=== PATIENT | female | born 1945 | race Caucasian/White ===

== ENCOUNTER 2017-04-23 17:50 | Inpatient (IN) | payer MEDICARE ==
[~2017-04-23] VITALS: Ht 175.3 cm; Wt 89.8 kg
[~2017-04-23 17:50] MED LIST: ALDACTONE25 MG; ASPIR 8181 MG; CARDURA4 MG; COZAAR 50 MG TA50 M2; LIPITOR 20 MG T20 M1; LIPITOR 20 MG T20 M1 PO; NORCO 5-325 TA1 EACH PO
[2017-04-23] MEDS ORDERED: ASPIRIN81 M2 PO (18:06)
[2017-04-23] MEDS ORDERED: BIOTIN1000 MCG PO (18:12)
[2017-04-23] MEDS ORDERED: CALCIUM CITRAT250 MG PO (18:14)
[2017-04-23] MEDS ORDERED: ZYRTEC10 M5 PO (18:15)
[2017-04-23] MEDS ORDERED: VITAMIN D2000 UNIT PO (18:16)
[2017-04-23] MEDS ORDERED: CHONDROITIN SU250 MG PO (18:18)
[2017-04-23] MEDS ORDERED: LASIX 20 MG TAB20 MG PO (18:19)
[2017-04-23] MEDS ORDERED: GLUCOSAMINE HC500 MG PO (18:20)
[2017-04-23] MEDS ORDERED: LEVOXYL75 MCG PO (18:22)
[2017-04-23] MEDS ORDERED: MELATONIN5 M1 PO (18:22)
[2017-04-23] MEDS ORDERED: UNICOMPLEX M TA1 TA1 PO (18:23)
[2017-04-23] MEDS ORDERED: OMEGA-31000 M1 PO (18:24)
[2017-04-23 19:45] VITALS: BP 155/82
--- NOTE | 2017-04-23 23:37 | NUR ---
ASSUMED CARE AT 1930. PATIENT ARRIVED PER W/C ADMITTED FROM [facility] TO ROOM 326 S/P CABG X 5. STATES WAS AT [facility] AND WAS GETTING HAIR BLOWN DRY WHEN SHE BECAME OVERHEATED AND STATES THAT SHE PASSED OUT THERE. SHE DOES NOT REMEMBER ANYTHING AFTER THAT, BUT [facility] HAD [facility]. UP WITH MIN ASSIST TO RISE FROM LYING, SBA, CUEING, GAIT BELT, HEART PILLOW AND STERNAL PRECAUTIONS. STOOL RISER IN USE. ONCE IN SITTING POSITION PATIENT CAN RISE MAINTAINING STERNAL PRECAUTIONS. ABLE TO RISE OFF STOOL RISER. VOIDS PER TOILET. ABLE TO DO HYGIENE AND CLOTHING ADJUSTMENTS. STATES HAS URGENCY WHEN SHE TAKES LASIX, BUT OTHERWISE DOES NOT HAVE INCONTINENCE. NO STOOL INCONTINENCE, BUT STATES THAT SHE HAS BEEN HAVING SOFT STOOLS AFTER [facility] GAVE HER LAXATIVES FOR CONSTIPATION. GOOD BED MOBILITY AND TURNS SIDE TO SIDE WITHOUT ASSIST. 2+ BILAT ANKLE AND FOOT EDEMA. ELEVATED ON PILLOWS AND LOTION APPLIED. 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 HAS FOAM DRESSING UNDER LEFT BREAST FROM DRAIN SITES. HAS LT INNER THIGH BRUISE THAT IS FIRM. HAS LT INNER POPLITEAL INCISION, JORDON, WELL APPROXIMATED WITH GLUE AND HAS BRUISING. LT WRIST BRUISED. LT INNER FAUST HAS A BANDAID THAT IS C/D/I. O2 2L/NC. STATES THAT "NOW THAT I KNOW HOW BENEFICIAL IT IS, I DON'T MIND USING IT." DENIES PAIN. HERE EARLIER AND VERY SUPPORTIVE. REHAB ROUTINE EXPLAINED. PATIENT STATES THAT SHE HAS AN APPOINTMENT NEXT WEDNESDAY WITH CARDIOLOGY, WILL PASS THIS ON TO REHAB [facility]. HOURLY ROUNDS CONTINUE. BED ALARM ON. CALL LITE IN REACH.
[2017-04-24 04:33] LABS: HEMATOCRIT 31.7 % (37.0-47.0); HEMOGLOBIN 10.5 gm/dL (12.0-15.0); MCH 29.4 pg (26.0-34.0); MCHC 33.3 g/dL (28.0-37.0); MCV 88.2 fL (80.0-100.0); MPV 7.3 fl. (7.2-11.1); RBC 3.59 mil/uL (4.20-5.00); RDW-CV 16.5 % (10.5-14.5)
[2017-04-24 04:51] LABS: CALCIUM 8.6 mg/dL (8.5-10.1); CREATININE 0.9 mg/dL (0.6-1.3); POTASSIUM 3.7 mmol/L (3.5-5.1)
--- NOTE | 2017-04-24 05:58 | NUR ---
SLEPT MOST OF THE NIGHT. STATES THAT IT WAS THE BEST SLEEP SHE HAS GOTTEN IN A FEW DAYS. VOIDED PER TOILET. STERNAL PRECAUTIONS MAINTAINED. HOURLY ROUNDS CONTIMUE. CALL LITE IN REACH. BED ALARM ON.
[2017-04-24 08:00] VITALS: BP 144/71
--- NOTE | 2017-04-24 16:25 | NUR ---
ASSUMMED CARE OF PT AT 0730, PT ALERT AND ORIENTED, PT TRANSFERS WITH SBA, GB AND USES HEART PILLOW FOR SUPPORT, STERNAL PRECAUTIONS MAINTAINED, STERNAL INCISION HEALING, HARD AREA REMAINS ON LEFT UPPER INNER THIGH, DRESSING TO LEFT BREAST INTACT, COMPLAINS OF HEADACHE AND STERNAL PAIN THIS AM, MEDICATED PER ORDER, AMB TO BATHROOM WITH 2 LITERS OF 02, BECOMES SOA AT TIMES, O2 SATS 94-96 %. PARTICIPATED IN ALL THERAPIES, HOURLY ROUNDING COMPLETED, ASSESSMENT COMPLETE, WILL CONTINUE TO MONITOR.
[2017-04-24 20:05] VITALS: BP 126/59
--- NOTE | 2017-04-24 22:10 | NUR ---
ASSUMED CARE AT 1930. PATIENT S/P CABG X 5. RESTING IN BED AT CHANGE OF SHIFT. HERE UNTIL AROUND 2029. UP WITH ONE, GAIT BELT, MIN LIFTING ASSIST WHEN RISING FROM LYING TO SITTING POSITION IN BED, HEART PILLOW. STERNAL PRECAUTIONS MAINTAINED. ALL DRESSINGS C/D/I AND UNCHANGED FROM YESTERDAY. TAKES PILLS WHOLE WITH WATER. O2 2L/NC. OFFERED APAP AT HS, BUT STATES SHE GETS "FUZZY" WHEN SHE COMBINES APAP WITH MELATONIN AND WOULD PREFER MELATONIN THIS EVENING. STATES SHE JUST FEELS SO MUCH BETTER TODAY AFTER HER FIRST DAY IN THERAPY AND FEELS SHE WILL MAKE GOOD PROGRESS. CALL LITE IN REACH. BED ALARM ON. HOURLY ROUNDS CONTINUE.
--- NOTE | 2017-04-25 05:26 | NUR ---
SLEPT MOST OF THE NIGHT. UP TO VOID PER TOILET. UP WITH ONE, GAIT BELT, STERNAL PRECAUTIONS. NO C/O PAIN. HOURLY ROUNDS CONTINUE. BED ALARM ON. CALL LITE IN REACH.
[2017-04-25 07:00] VITALS: BP 116/71
--- NOTE | 2017-04-25 16:18 | NUR ---
ASSUMMED CARE OF PT AT 0730, PT ALERT AND ORIENTED, PT TRANSFERS WITH SBA, GB AND CARDIAC PILLOW, PT DENIES NEED FOR PAIN MEDICATION THIS SHIFT, COMPLETED BATH, GROOMING AND DRESSING WITH SUPERVISON TO MIN ASSIST, PT O2 SATS 96% ON 2 LITERS, BECOMES SOA WITH ACTIVITY, PT ENCOURAGED TO USE IS AND TO COUGH AND DEEP BREATHE, STERNAL INCISION HEALING, DRESSING CHANGED TO DRAIN SITES UNDER BREAST AREA, SMALL AMOUNT OF SEROUS SNAGUINOUS DRAINAGE NOTED, TAKING FOOD AND FLUIDS WELL, DININGROOM FOR LUNCH, AMBULATES TO TOILET TO VOID, BM THIS SHIFT, ROXI STERNAL PRECAUTIONS, ASSESSMENT COMPLETE, HOURLY ROUNDING COMPLETED, WILL CONTINUE TO MONITER.
[2017-04-25 19:30] VITALS: BP 99/49
--- NOTE | 2017-04-25 22:52 | NUR ---
ASSUMED CARE AT 1930. PATIENT S/P CABG X 5. RESTING IN W/C UNTIL AROUND 2100. UP WITH SBA, MIN LIFTING WHEN RISING FROM LYING > SITTING IN BED, GAIT BELT. HAS MAINTAINED STERNAL PRECAUTIONS. VOIDS PER TOILET, ABLE TO PERFORM HYGIENE AND CLOTHING ADJUSTMENTS. TAKES PILLS WHOLE WITH WATER. NEW ORDER OF LOVENOX, STATES THAT SHE RECEIVED THIS AT [facility]. NEW ORDER FOR ACCUCHECKS. VERBALIZED UNDERSTANDING OF INSTRUCTIONS ON HOW THEY ARE DONE AND PURPOSE. NO SSI ORDERED AT THIS TIME. DR. HARRIS NOTIFIED ABOUT NEURO CONSULT FROM DR. EDWARD, DR. HARRIS STATES TO CALL NEURO IN THE MORNING. PATIENT EMPHATICALLY STATES THAT SHE HAS AN APPOINTMENT ON WEDNESDAY WITH HER PLAYER PIANO TECHNICIAN, DR. VINES, AND THAT HIS NURSE SAM TOMAS CONFIRMED THAT THE DATE. WILL PASS THIS ONTO REHAB [facility] FOR CLARIFICATION. STERNAL INCISION ADMINISTRATIVE ASSISTANT FRONT DESK, C/D/I. LOWER CHEST DRAIN DRESSING C/D/I. LT INNER THIGH REMAINS BRUISED AND FIRM. LT INNER KNEE AREA DRESSING C/D/I. DEINES PAIN. DENIES PAIN. REFUSED COLACE THIS PM. HOURLY ROUNDS CONTINUE, CALL LITE IN REACH. BED ALARM ON.
[2017-04-26 05:20] LABS: HEMATOCRIT 32.7 % (37.0-47.0); HEMOGLOBIN 10.7 gm/dL (12.0-15.0); MCH 29.4 pg (26.0-34.0); MCHC 32.9 g/dL (28.0-37.0); MCV 89.4 fL (80.0-100.0); MPV 7.6 fl. (7.2-11.1); RBC 3.66 mil/uL (4.20-5.00); RDW-CV 16.4 % (10.5-14.5); WBC 12.5 thou/uL (4.0-11.0)
[2017-04-26 05:56] LABS: CALCIUM 8.6 mg/dL (8.5-10.1); POTASSIUM 4.8 mmol/L (3.5-5.1)
--- NOTE | 2017-04-26 06:27 | NUR ---
SLEPT MOST OF THE NIGHT EXCEPT TO VOID. TURNS SELF. NO C/O PAIN. HOURLY ROUNDS CONTINUE. BED ALARM ON. CALL LITE IN REACH.
[2017-04-26 08:59] VITALS: BP 104/64
--- NOTE | 2017-04-26 10:43 | NUR ---
Nutrition: Pt participating in therapies. Admitted to rehab s/p CABG. +BM. Regular diet ordered. Eating 90-100%. Pt has DM, post-op anemia. No albumin recorded, labs appear ok. Wt: 201#. Low risk. Will follow weekly.
--- NOTE | 2017-04-26 11:02 | NUR ---
SW met with pt and pt to complete initial assessment, introduce self, and SW role. Pt alert and oriented. Pt lives at home with her and was previously independent with ADLs and mobility. Pt goal is to be independent again at home at dc. SW to continue to follow to assist with safe dc planning.
--- NOTE | 2017-04-26 16:05 | NUR ---
ASSUMED CARE AT 0730. ALERT ORIENTED PLEASANT COOPERATIVE. HX OF CABG X 5. STERNAL PRECAUTIONS. STERNAL INCISION JORDON. USES HEART PILLOW WITH TRANSFERS WALKS TO BR TO VOID. ABLE TO DO HYGEINE AND CLOTHING ADJUSTMENTS. WEARS O2 AT 2L/M PER N/C CONTINOUS. DENIES PAIN TRANSFERS WITH SBA G BELT. USES CALL LIGHT APPROPRIATELY FOR ASSIST. BLES EDEMA PRESENT ELEVATED WHENEVER POSSIBLE. HEMATOMA PRESENT L INNER THIGH STATES SOME DISCOMFORT WHEN TOUCHED. DRESSING LEFT BREAST MEPILEX D/I. PARTICIPATING IN THERAPIES THROUGHOUT THE DAY. HERE VISITING MUCH OF THE DAY.
[2017-04-26 19:44] VITALS: BP 120/54
[2017-04-27 02:08] LABS: GLYCOHEMOGLOBIN (HGB A1C) 5.2 % (4.8-5.6)
--- NOTE | 2017-04-27 05:42 | NUR ---
ASSUMED CARE AT 1915. PT ALERT AND ORIENTED PLEASANT. S/P CABG X 5. STERNAL PRECAUTIONS. ALL INCISIONS ARE HEALING. HEMATOMA TO LEFT INNER THIGH. DENIES ANY PAIN. O2 REMOVED DURING THE NIGHT PT SATS ARE WITHIN NORMAL RANGE. SHE IS A SBA WITH GAIT BELT. USES HEART PILLOW. UP TO BATHROOM FEW TIMES DURING THE NIGHT. DOES OWN CARES. SLEPT WELL MOST OF THE NIGHT. USED CALL LIGHT APPROPRIATELY. BED ALARM ON.
[2017-04-27 08:01] VITALS: BP 109/66
--- NOTE | 2017-04-27 13:34 | NUR ---
Nutrition: RN called requesting further heart health education. Pt not in room at time of visit, 13:00. RD left several handouts on heart healthy diet. Provided RD contact info for pt.
--- NOTE | 2017-04-27 14:36 | NUR ---
ASSUMED CARE AT 0730. ALERT ORIENTED PLEASANT COOPERATIVE. HX OF CABG X 5. STERNAL PRECAUTIONS STERNAL INCISION MINK RANCHER. DRESSING CHANGED TO DRAIN SITES UNDER LEFT BREAST HEALING SMALL AMT DRAINAGE ON OLD DRESSING. HEMATOMA L INNER THIGH DR. CANCINO REQUESTED THIGH HIGH CAROLE HOSE. PT. DOES HAVE EDEMA BLES ELEVATES WHEN NOT IN THERAPIES. DENIES PAIN OR REQUESTS. DENIES PAIN USES CALL LIGHT APPROPRIATELY FOR ASSIST.
--- NOTE | 2017-04-27 17:45 | NUR ---
PT. HAS NOT WORN O2 THROUGHOUT THE DAY. DR. SKELTON DID ROUND ON PT. THIS A.M. MRI FROM [facility] ON CHART PER HIS REQUEST. DENIES PAIN OR REQUESTS.
[2017-04-27 20:30] VITALS: BP 115/63
--- NOTE | 2017-04-28 05:46 | NUR ---
ASSUMED CARES AT 1920. PT ALERT AND ORIENTED. PLEASANT. S/P CABG X 5. STERNAL PRECAUTIONS. USES HEART PILLOW WHEN GETTING UP. DENIES ANY PAIN. SHE IS A SBA WITH GAIT BELT. UP TO BATHROOM FEW TIMES DURING THE NIGHT. DOES OWN CARES. BLE EDEMA. INFORMED PT THAT TEDS SHOULD BE WORN IN AM. LEGS WERE ELEVATED IN BED. INCISIONS TO STERNUM AND LLE ARE HEALING. USED CALL LIGHT APPROPRIATELY. SLEPT MOST OF THE NIGHT.
[2017-04-28 08:12] VITALS: BP 129/77
--- NOTE | 2017-04-28 15:58 | NUR ---
SW met with pt to review team conference summary. Plan for pt to dc home with next Friday 05/05 after another team conference. Pt in agreement with plan. SW to continue to follow to assist with safe dc planning.
--- NOTE | 2017-04-28 18:50 | NUR ---
AM ASSESSMENT AND VITAL SIGNS COMPLETED DOCUMENTED. HOURLY ROUNDING AND FALL PRECAUTIONS IN PLACE. PT HAS BEEN COOPERATIVE AND PLEASANT, PARTICIPATED IN THERAPY AND HAS BEEN MAKING GOOD PROGRESS TOWARD GOALS. STERNAL PRECAUTIONS CONTINUE.
[2017-04-28 20:19] VITALS: BP 150/63
--- NOTE | 2017-04-29 06:01 | NUR ---
ASSUMED CARES AT 1920. PT ALERT AND ORIENTED. PLEASANT. TYLENOL GIVEN FOR HEADACHE. TAKES PILLS WHOLE WITHOUT ISSUES. STERNAL PRECAUTIONS. USES HEART PILLOW. SBE WITH GAIT BELT. UP TO BATHROOM. DOES OWN CARES. SLEPT MOST OF THE NIGHT. NO FURTHER COMPLAINTS. CALL LIGHT IN REACH.
[2017-04-29 08:17] VITALS: BP 111/67
--- NOTE | 2017-04-29 15:19 | NUR ---
ASSUMED CARES AT 0700, PT IN BED, BED IN LOW AND LOCKED POSITION. FALL PRECAUTIONS IN PLACE, CALL BUTTON AND PERSONAL ITEMS IN PT REACH. PT A&O X4, HRRR PER AUSCULTATION, LCTAB/DIMINISHED IN LL, PT DENIES SOA, BM TODAY, MIDSTERNUM SURGICAL INCISION/CABG X 5 WELL APPROXIMATED, INTACT, NO S/S OF INFECTION, STERNAL PRECAUTIONS. MEPILEX REPLACED UNDER LEFT BREAST, HEALING WELL, NO S/S OF INFECTION. PT UP WITH GAIT BELT, WALKING SBA WITH STAFF. VSS, AFEBRILE. PT C/O HEADACHE IN MORNING SHIFT, RESOLVED WITH TYLENOL PER PT STATEMENT. PT PARTICIPATED IN ALL THERAPIES, WENT TO DINING ROOM FOR MEALS. PT TRANSFERRED ROOMS FOR LARGER SPACE, ALL PERSONAL BELONGINGS PACKED AND ACCOUNTED FOR. PT PROGRESSING TOWARDS GOAL, PT USES HEART PILLOW WHEN NEEDED. LE ELEVATED IN RECLINER/BED NEEDED. HEMATOMA ON INNER THIGH IMPROVING PER PT STATEMENT. SPOUSE VISITED THIS SHIFT. USES CALL BUTTON APPROPRIATELY. WILL CONTINUE TO MONITOR PT PROGRESS AND STATUS.
--- NOTE | 2017-04-29 19:19 | NUR ---
REPORT TO HOME DELIVERY DRIVER FOR CONTINUED CARES. PT REMAINS STABLE, VSS. PT DENIES PAIN. PT COMPLETED THERAPIES. HOURLY ROUNDING COMPLETED. SPOUSE AT BEDSIDE. PT PROGRESSING TOWARDS GOAL.
[2017-04-29 20:21] VITALS: BP 120/61
--- NOTE | 2017-04-30 00:22 | NUR ---
ASSUMED CARE AT 1929. PATIENT S/P CABG X.5. RESTING IN RECLINER UNTIL AROUND 2129 THEN TO BED. VOIDS PER TOILET, DOES OWN CARES. TAKES PILLS WHOLE WITH WATER. UP WITH SBA, GAIT BELT, HEART PILLOW. MAINTAINS STERNAL PRECAUTIONS. DECLINED MELATONIN THIS PM. TOOK APAP WITH GOOD RESULTS. APPEARS SLEEPING. TURNS SELF IN BED. HOURLY ROUNDS CONTINUE. BED ALARM ON. CALL LITE IN REACH.
--- NOTE | 2017-04-30 05:23 | NUR ---
SLEPT MOST OF THE NIGHT. NO FURTHER C/O PAIN. TURNS SELF. CALL LITE IN REACH. BED ALARM ON. HOURLY ROUNDS CONTINUE.
[2017-04-30 08:00] VITALS: BP 98/56
--- NOTE | 2017-04-30 18:38 | NUR ---
AM ASSESSMENT AND VITAL SIGNS COMPLETED DOCUMENTED. PT HAD A BRIEF EPISODE OF ACCELERATED HEART RATE THIS AM, SHE C/O FEELING WEAK AND DIZZY. BP WAS 89/52 AND HR 131. PT RECLINED IN CHAIR, 12 LEAD EKG OBTAINED BUT PT HAD CONVERTED BACK TO SR WITH HR OF 80. CARDIOLOGY CONSULT ORDERED BY DR TORRES AND DR RAE WILL SEE PT. PT PARTICIPATED IN ALL THERAPY AND DID NOT HAVE ANY MORE ISSUES THIS SHIFT. FALL PRECAUTIONS AND HOURLY ROUNDING CONTINUE.
[2017-04-30 20:15] VITALS: BP 126/65
--- NOTE | 2017-04-30 20:17 | EKG ---
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 : 1945 Requested By: Lenore Damian Order Number: [id number] MD: Mike Mcfadden Measurements Intervals [place] Rate: 79 P: 5 SC: 164 QRS: 8 QRSD: 99 T: 127 QT: 381 QTc: 437 Interpretive Statements Sinus rhythm Inferior infarct age indeterminate possible Abnormal T, consider ischemia, lateral leads No previous ECG available for comparison Electronically Signed On 04-30-2017 20:17:38 RECREATION AIDE by Mike Mcfadden [email or web address] <ELECTRONICALLY SIGNED> By: Mike Mcfadden MD, [facility] 04/30/172016 4 4 Mike Mcfadden MD, FACC /EPI
[2017-04-30 20:21] VITALS: BP 122/41
--- NOTE | 2017-05-01 02:19 | NUR ---
ASSUMED CARE @ 1949-04/30-WEDNESDAY.SITS IN RECLINER W/ LE'S UP.WEARS THIGH HIGH TEDS & OFF @ HS.ON STERNAL PRECAUTIONS.CORDARONE STARTED @ HS.REFUSED HS [place]TE- TONIN.PREFERS TYLENOL 2 TABS FOR SLEEP & GIVEN @ 2045.BED ALARM PUT ON @ 2199. BP 0800-98/56.BP @ 2030-126/65.ROOM HOT.THERMOSTAT LOWERED.COLD WASH CLOTH GIVEN TO PATIENT BY SOUR BLEACHING PLEATER @ 0200.ALSO COLD ICE H20 GIVEN.ONLY BED SHEET USED FOR COVER.ON HOURLY ROUNDS.SOUR BLEACHING PLEATER DOING ODD HOUR ROUNDS.
--- NOTE | 2017-05-01 05:44 | NUR ---
SLEEPING SINCE 2199.BRP X4.TOOK ALL APPLE SAUCE W/ ONE PACKAGE SALTINE CRACKERS HS SNACKS.
[2017-05-01 08:00] VITALS: BP 139/74
--- NOTE | 2017-05-01 12:16 | CON ---
[address] [address] CONSULTATION Name: SAM GONZÁLES Room: [address] IN M.R.#: [id number] Admission: 04/23/17 Attend Phys: Lenore Damian DO Discharge: Date of : 45 Report #: [id number] THIS REPORT FOR: //name// CC: Lenore Tariq MD DATE OF SERVICE: 04/30/2017 INDICATION: Paroxysmal atrial fibrillation. 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 She was transported to the hospital. Further evaluation included a tilt table test and stress testing that showed evidence of anterolateral wall ischemia. Cardiac catheterization revealed significant 3-vessel coronary artery disease. The patient ultimately underwent 5-vessel coronary artery bypass grafting on 04/13/2017. To my knowledge, she has preserved left ventricular systolic function. Postoperatively, she did relatively well with the exception of having some significant constipation and paroxysmal atrial fibrillation. Approximately a week ago, she was brought to the rehabilitation floor here at [facility] for further recuperation. Recovery has been fairly unremarkable. This morning, she did have an episode of atrial fibrillation lasting approximately 45 minutes, associated with significant palpitations and fatigue. The patient was somewhat fatigued for several hours after this episode. At the time of my interview, she is feeling better. Her rhythm is stable. She is hemodynamically stable at this time. PAST MEDICAL HISTORY: 1. Coronary artery disease. 2. A 5-vessel coronary artery bypass grafting as outlined above. 3. Postoperative paroxysmal atrial fibrillation. 4. Hypertension. 5. Hyperlipidemia. PAST SURGICAL HISTORY: 1. Coronary artery bypass grafting on 04/13/2017, 5 vessels. FAMILY HISTORY: The patient's father had congestive heart failure. The patient's mother had bypass surgery. The patient's sister has congestive heart failure. SOCIAL HISTORY: The patient is . She does not smoke. [place] [address] CONSULTATION Name: SAM GONZÁLES Room: [address] IN [facility]#: [id number] Admission: 04/23/17 Attend Phys: Lenore Damian DO Discharge: Date of : 45 Report #: [id number] ALLERGIES: None documented. MEDICATIONS ON TRANSFER: Aspirin 81 mg daily, atorvastatin 20 mg daily, biotin 1500 mg daily, calcium citrate 1 tablet daily, Zyrtec 10 mg daily as needed, vitamin D3 2000 units daily, chondroitin 250 mg every other day, furosemide 20 mg daily, glucosamine 1500 mg daily, Levoxyl 75 mcg daily, losartan 100 mg daily, melatonin 5 mg at bedtime, Unicomplex-M tablet 1 tablet daily, fish oil 1000 mg t.i.d., spironolactone 25 mg daily. REVIEW OF SYSTEMS: On 14-point review of systems, she reports palpitations, generalized weakness, dyspnea, cough that is nonproductive, hypothyroidism on replacement, mild anxiety. She wears glasses without acute visual change. She has decreased hearing. Otherwise, 14-point review of systems was unremarkable. PHYSICAL EXAMINATION: VITAL SIGNS: Stable. Blood pressure 98/56, pulse 80 and regular. GENERAL: This is a pleasant lady who appears younger than stated age. HEENT: The patient is wearing glasses. Extraocular muscles intact. Mucous membranes moist. NECK: Shows no jugular venous distention. There are no carotid bruits. CHEST: Reveals clear lung dela cruz. Midline sternotomy scar appears to be healing well. CARDIOVASCULAR: Reveals a regular rhythm without gallop, murmur or rub. ABDOMEN: Reveals normal bowel sounds. The abdomen is soft, nontender. EXTREMITIES: Shows no edema. Peripheral pulses are 2+ and easily palpable. LABORATORY DATA: A 12-lead EKG after her episode of atrial fibrillation shows sinus rhythm with nonspecific T-wave inversion. IMPRESSION AND RECOMMENDATIONS: 1. Postop paroxysmal atrial fibrillation. At this time, I will start amiodarone in tapering fashion. I do not believe she needs to be on this indefinitely. However, at least for the next month or so, I would like her to be on amiodarone. We will consider anticoagulation if she has recurrent episodes. 2. Coronary artery disease, presently stable. She is not having any symptoms to suggest angina. 3. Status post 5-vessel coronary artery bypass grafting on 04/13/2017. She is healing well. She will continue in rehab at this time. 4. Hypertension. Blood pressure is low normal presently. We will follow and [address] [place] [address] CONSULTATION Name: NIVIASAM Paulo Room: [address] IN M.R.#: [id number] Admission: 04/23/17 Attend Phys: Lenore Damian DO Discharge: Date of : 45 Report #: [id number] make adjustments to medications as necessary. 5. Hyperlipidemia. Continue atorvastatin at current dose. <ELECTRONICALLY SIGNED> By: Mike Mcfadden MD, FACC 05/01/17 1216 [id number] Mcfadden MD, FACC /nt
--- NOTE | 2017-05-01 18:20 | NUR ---
PT CARE ASSUMED AT 0730, ASSESSMENT AND VITAL SIGNS COMPLETED DOCUMENTED. PT HAS HAD A GOOD DAY, NO EPISODES OF FEELING WEAK OR DIZZY, TOLERATING THE AMIODARONE LOADING WITHOUT ADVERSE REACTIONS. PT IS ABLE TO STAND FROM A CHAIR OR THE TOILET AND STILL MAINTAIN STERNAL PRECAUTIONS. ALL INCISIONS ARE WELL APPROXIMATED AND HEALING WELL. PT ENCOURAGED TO INCREASE THE DISTANCE SHE IS AMBULATING, SHE STILL FATIGUES QUICKLY. GRADUAL PROGRESS TOWARD DISCHARGE GOALS. FALL PRECAUTIONS AND HOURLY ROUNDING IN PLACE.
[2017-05-01 20:00] VITALS: BP 128/59
--- NOTE | 2017-05-02 01:41 | NUR ---
ASSUMED CARE @ 1919-05/01-SAT.SITS IN RECLINER W/ LE'S UP WATCHING TV.THIGH HIGH TEDS ON & OFF WHEN IN BED.REFUSED HS MELATONIN.INSTEAD WANTS TYLENOL 2 TABS FOR SLEEP & GIVEN @ 2026.STERNAL PRECAUTIONS OBSERVED.BED ALARM PUT ON @ 2139.PATIENT READ THAT CORDARONE SHOULD NOT BE GIVEN W/ LIPITOR-SO REFUSED HS DOSE LIPITOR.SINCE WAX CUTTER WILL MAKE ROUNDS ON WEDNESDAY-PER PATIENT-INSTRUCTED PATIENT TO ASK WAX CUTTER ABOUT LIPITOR.ON HOURLY ROUNDS. DIE REPAIRER TRIMMER DIES DOING ODD HOUR ROUNDS.
--- NOTE | 2017-05-02 05:20 | NUR ---
SLEEPING SINCE -05/02-WEDNESDAY.BRP W/ SBA X2.ATE ALL APPLE SAUCE W/ TWO PACKAGES SALTINE CRACKERS HS SNACKS.
[2017-05-02 07:30] VITALS: BP 118/71
--- NOTE | 2017-05-02 16:31 | NUR ---
AM ASSESSMENT AND VITAL SIGNS COMPLETED DOCUMENTED. PT HAS BEEN PLEASANT AND COOPERATIVE, GRADUAL PROGRESS TOWARD DISCHARGE GOALS. AFTER BREAKFAST SHE CLEANED UP AT THE SINK AND WAS ABLE TO DRESS HERSELF OTHER THAN THE CAROLE HOSE. PRN TYLENOL GIVEN FOR MILD BACK PAIN WITH GOOD RESULTS. PT ENCOURAGED TO AMBULATE IN THE HALLS WITH STAFF AND SHE AGREED TO WALK FROM THE DINING ROOM BACK TO HER ROOM, TOLERATED WELL. AMIODARONE DOSE WILL BEGIN TO TAPER WITH TONIGHTS DOSE, ATORVASTATIN DOSE OK'd BY CARDIOLOGY. HOURLY ROUNDING AND FALL PRECAUTIONS IN PLACE, NO ACUTE DISTRESS.
[2017-05-02 20:00] VITALS: BP 145/63
--- NOTE | 2017-05-03 01:19 | NUR ---
ASSUMED CARE @ -SUN.SITS IN RECLINER W/ LE'S ON WATCHING TV.THIGH HIGH TEDS ON.TOOK ALL HOT CHICKEN BROTH W/ SALTINE CRACKERS @ 1939.TRANSFERS & TOILETING W/ SBA.USES HEART PILLOW IN CHEST DURING TRANSFERS.STERNAL PRE- CAUTIONS OBSERVED.HOB IN BED.WANTS ONLY SIDERAILS X2 UP.BED ALARM PUT ON @ 2139.THIGH HIGH TEDS OFF @ 2139.REFUSED HS MELATONIN.PREFERS TYLENOL 2 TABS ORAL FOR SLEEP & GIVEN @ 2032.ON HOURLY ROUNDS.
--- NOTE | 2017-05-03 05:12 | NUR ---
SLEEPING SINCE 2200.TOOK ALL HOT CHICKEN BROTH SALT FREE W/ SALTINE CRACKERS & APPLE SAUCE HS SNACKS.BRP X 1.NO EPISODE OF NAUSEA/NO C/O BACK PAIN DURING NIGHT.
[2017-05-03 07:30] VITALS: BP 119/57
--- NOTE | 2017-05-03 15:52 | NUR ---
ASSUMMED CARE OF PT AT 0730, PT ALERT AND ORIENTED, PT TRANSFERS WITH SBA, AND GB, HAS HEART PILLOW FOR SUPPORT, STERNAL PRECAUTIONS MAINTAINED, PT COMPLAINS OF MID BACK PAIN, MEDICATED X 1 FOR PAIN, PT DENIED NAUSEA THIS SHIFT, C/O FEELING LIGHT HEADED X 1 WHEN SHE WAS IN BATHROOM THIS AM, BUT DID NOT TELL STAFF UNTIL AFTER EPISODE WAS OVER, PT INSTRUCTED TO LET US KNOW IF HAS ANY FURTHER EPISODES, INCISION SITES ALL DRY AND HEALING, MEPILEX REMOVED FROM UNDER BREAST AREA AND DONOR SITE INC LEFT RN INTERVENTIONAL, PARTICIPATED IN ALL THERPAIES, HOURLY ROUNDING COMPLETED, ASSESSMENT COMPLETE, WILL CONTINUE TO MONITER.
[2017-05-03 19:55] VITALS: BP 92/53
--- NOTE | 2017-05-03 22:36 | NUR ---
ASSUMED CARE AT 1930. PATIENT RESTING IN CHAIR UNTIL AROUND 2200. UP WITH ONE, GAIT BELT, HEART PILLOW. STERNAL PRECAUTIONS OBSERVED. VOIDS PER TOILET. INCISIONS TO CHEST, LOWER ANTERIOR CHEST AND LEFT LEG ALL BUILDING CUSTODIAL SUPERVISOR AND HEALING WELL. TAKES PILLS WHOLE WITH WATER. SNACK OF APPLESAUCE AND CRACKERS WITH HS MEDS. MOVES WELL IN BED. HEELS OFFLOADED WITH PILLOWS. THIGH HIGH TEDS REMOVED. TOOK MELATONIN AT HS RATHER THAN APAP TONIGHT PER REQUEST. BED ALARM ON. SR UP X2 PER REQUEST. CALL LITE IN REACH. HOURLY ROUNDING CONTINUES.
--- NOTE | 2017-05-04 05:23 | NUR ---
SLEPT MOST OF THE NIGHT AFTER ABOUT 2200. VOIDED PER TOILET. STERNAL PRECAUTIONS MAINTAINED. HOURLY ROUNDS CONTINUE. BED ALARM ON. CALL LITE IN REACH.
[2017-05-04 07:30] VITALS: BP 124/63
--- NOTE | 2017-05-04 16:42 | NUR ---
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
[2017-05-04 19:38] VITALS: BP 109/66
--- NOTE | 2017-05-04 21:15 | NUR ---
SITTING UP IN CHAIR WATCHING TV. AMBULATED TO THE BATHROOM WITH SBA, GAITBELT, HEART PILLOW, STERNAL PRECAUTIONS. DID OWN HYGIENE AND CLOTHING ADJUSTMENTS. C/O HEADACHE RATED "2" BUT DECLINED OFFER OF PAIN MEDS. TOOK MEDS WHOLE ONE AT A TIME WITH WATER. CONSUMED A CONTAINER OF APPLESAUCE AND CRACKERS. STATES ALWAYS TAKE APPLESAUCE AND CRACKERS WITH HER AMIODARONE.
[2017-05-05 03:52] LABS: HEMATOCRIT 32.8 % (37.0-47.0); HEMOGLOBIN 11.2 gm/dL (12.0-15.0); MCH 30.1 pg (26.0-34.0); MCHC 34.2 g/dL (28.0-37.0); MCV 87.9 fL (80.0-100.0); MPV 7.2 fl. (7.2-11.1); RBC 3.73 mil/uL (4.20-5.00); RDW-CV 16.4 % (10.5-14.5); WBC 7.8 thou/uL (4.0-11.0)
[2017-05-05 04:22] LABS: CALCIUM 9.3 mg/dL (8.5-10.1); CREATININE 1.1 mg/dL (0.6-1.3); POTASSIUM 5.5 mmol/L (3.5-5.1)
--- NOTE | 2017-05-05 05:27 | NUR ---
RESTED QUIETLY. UP X ONE DURING THE NIGHT TO THE BATHROOM TO VOID. NO C/O DISCOMFORT. HOURLY ROUNDING IN PROGRESS.
[2017-05-05 08:40] VITALS: BP 117/75
[2017-05-05 12:00] VITALS: BP 117/75
[2017-05-05] MEDS ORDERED: PACERONE 200 M200 M1 PO (12:51)
[2017-05-05 15:41] VITALS: BP 117/75
--- NOTE | 2017-05-05 15:43 | NUR ---
SW met with pt and reviewed team conference summary. Pt to dc home with today and with HH services to follow. Pt preference for [facility] services. SW called intake at [facility] at number [phone] and they accepted referral. BENSON faxed referral, final orders, and med list to fax number [phone]. Pt is not in need of any equipment or assistive devices. BENSON also discussed with pt ; pt and pt in agreement with plan and did not express any needs or concerns.
[2017-05-05 15:48] VITALS: BP 117/75
[2017-05-05] MEDS ORDERED: COZAAR 25 MG TA25 M1 PO (16:23)
--- NOTE | 2017-05-06 11:51 | CON ---
[facility] [address] [place] [address] CONSULTATION Name: NIVIASAM Room: [address] IN M.R.#: [id number] Admission: 04/23/17 Attend Phys: Lenore Damian DO Discharge: 05/05/17 Date of : 45 Report #: [id number] THIS REPORT FOR: //name// CC: Lenore Condonakaturi DATE OF SERVICE: 04/27/2017 HISTORY OF PRESENT ILLNESS: This is a 71-year-old female patient for whom a neurological consultation was requested because the patient was found to have left vertebral stenosis on a CT angiogram done in [facility]. The history is pretty complicated. I do not have all the records from [facility], but looks like reviewing the records including what looks like a Neurology consult would indicate that she was seen in [facility] with some altered mental status and some posterior fossa symptoms for a code stroke activation. They did do a CT angiogram in this patient and that indicated a vertebral artery stenosis on the left side. They worked her up and the patient in fact underwent coronary bypass surgery. She indicated she had some trouble with GI symptoms and she mistook it for the pain secondary to surgery. In any event, she needed a rehab and she is here in the rehab. REVIEW OF SYSTEMS: A 14-point review of systems indicate that she does have by history a history of hypertension, hyperlipidemia and hypothyroidism. She had a prior hysterectomy as per record, but rest of the 14-point review of system looks mostly unremarkable. She does not remember what was done at [facility]. PAST MEDICAL HISTORY: Negative for any stroke. FAMILY HISTORY: Negative for any early age stroke. SOCIAL HISTORY: She does not drink any alcohol or smoke. PHYSICAL EXAMINATION: Indicate that she is alert. She is responsive. She can follow simple commands. Her speech, concentration, fund of knowledge and memory is at her baseline. Cranial nerve examination 2-12 was mostly unremarkable. She is weak in generalized fashion, but she does not have any focal weakness. Her position sense is intact. Her reflexes are symmetrical. She said she is getting to walk now. Cardiac examinations indicate recent surgery for bypass and she does not appear to have any respiratory difficulty or rhonchi. Her blood pressure is 109/66, respiration is 18, pulse is 76, temperature is 98.5. LABORATORY DATA: Her white count is still 12.5. She is on baby aspirin. IMPRESSION: This patient has vertebral artery stenosis for which a Neurology consultation was requested. That question [place] [address] CONSULTATION Name: SAM GONZÁLES Room: [address] IN [facility].#: [id number] Admission: 04/23/17 Attend Phys: Lenore Damian DO Discharge: 05/05/17 Date of : 45 Report #: [id number] at [facility]. There is no invasive treatment for vertebral artery stenosis and it need to be managed for antiplatelet as well as statin. I will suggest checking with [facility] to make sure she had an MRI of the brain done to make sure that stenosis did not cause any stroke there. If she did have a stroke, then I think she should be on a full aspirin. She can follow up with a neurologist at [facility] after the dismissal. Since they have the workup, I will let them work it up further. The only thing I will suggest is you can consider full aspirin and try to get MRI from [facility]. Thank you very much for allowing me to share in the management of this patient. Please call if there are any questions, but I think the best will be to for her to follow up with her own neurologist at [facility] who did the workup and if any acute problem occurs here, please call me and I will be happy to see this patient. Thank you very much for this referral. <ELECTRONICALLY SIGNED> By: Cayetano Russell MD 05/06/17 1151 [id number] 1921Pbing Russell MD /nt
--- NOTE | 2017-05-25 14:42 | D ---
[facility] [address] [place] [address] DISCHARGE SUMMARY Name: SAM GONZÁLES Room: [address] IN M.R.#: [id number] Admission: 04/23/17 Attend Phys: Lenore Damian DO Discharge: 05/05/17 Date of : 45 Report #: [id number] THIS REPORT FOR: //name// CC: Lenore Moreno Velakaturi DATE OF SERVICE: 05/05/2017 DISCHARGE DIAGNOSIS: Cardiac debility post coronary artery bypass grafting x 5. DISCHARGE DISPOSITION: To the home setting with home health PT, OT and nursing with anticipation to transition to cardiac rehabilitation once seen by Cardiology on 05/21/2017. The patient is to maintain sternal precautions, fall precautions and continue to utilize her CAROLE hose. She did progress well with physical and occupational therapy to gain her independence. While maintaining sternal precautions, she did need a lot of cueing and reminders to maintain that sternal precaution. Notifications for physician were given. She will maintain heart healthy diet. Monitor for weight gain. Again CAROLE hose sternal precautions and fall precautions. MEDICATIONS: Reviewed and reconciled by myself and are available in the MAR. DISCHARGE PHYSICAL EXAMINATION: GENERAL: Alert, oriented, in no apparent distress. VITAL SIGNS: Reviewed and are stable. HEENT: Head atraumatic, normocephalic. Pupils equal, round, reactive. ABDOMEN: Soft, nontender, nondistended. NEUROLOGIC: Cranial nerves 2-12 are grossly intact. No focal neuro deficits, 5/5 strength in the bilateral upper and lower extremities. SKIN: Warm and dry. No rashes or lesions noted. <ELECTRONICALLY SIGNED> By: Lenore Damian DO 05/25/17 1442 1501 1723Kshivani Damian DO /nt
--- NOTE | 2017-05-25 14:42 | H ---
[address] [address] HISTORY AND PHYSICAL Name: SAM GONZÁLES Room: [address] IN M.R.#: [id number] Admission: 04/23/17 Attend Phys: Lenore Damian DO Discharge: 05/05/17 Date of : 45 Report #: [id number] THIS REPORT FOR: //name// CC: Lenore Condonakaturi DATE OF SERVICE: 04/23/2017 REASON FOR ADMISSION AND HISTORY OF PRESENT ILLNESS: Status post vagal mediated syncope, history of bradycardia and status post CABG, admitted to inpatient rehabilitation to facilitate safe discharge home with multiple other medical comorbidities including hypertension, hyperlipidemia, metabolic syndrome, and hypothyroid. She has had no significant changes since the preadmission screening. She did do well over her first night with no significant complaints of pain. She does have her present at the bedside during the consultation. She was having a lot of congestion for 3-4 days, did get admitted to [facility] and ultimately went in to surgery. Previous level of function was independent with activities of daily living. Current level of function is minimum to moderate assistance depending on therapy, activity and time of day. She has needs in physical and occupational therapy. She will have a screening with speech language pathology unknown if she will need services at that time. She lives in a house with 3 steps to enter and there is rail. She has a supportive who is also in good health. Estimated length of stay is 12-14 days with discharge disposition to the home setting. PAST MEDICAL HISTORY: Hypothyroid, hypertension, hyperlipidemia. PAST SURGICAL HISTORY: Hysterectomy. ALLERGIES: No known drug allergies. SOCIAL HISTORY: No tobacco, alcohol or illicit drug use. FAMILY HISTORY: Heart disease. REVIEW OF SYSTEMS: A 14-point review of systems is done and is negative except as mentioned in HPI, specifically no fever, chest pain, shortness of breath, abdominal pain or distention. MEDICATIONS: Reviewed, reconciled and are available in the MAR. PHYSICAL EXAMINATION: GENERAL: Alert, oriented, no apparent distress. VITAL SIGNS: Reviewed and are stable. HEENT: Head atraumatic, normocephalic. Pupils equal, round, reactive. ABDOMEN: Soft, nontender[place] [address] HISTORY AND PHYSICAL Name: SAM GONZÁLES Room: [address] IN [facility].#: [id number] Admission: 04/23/17 Attend Phys: Lenore Damian DO Discharge: 05/05/17 Date of : 45 Report #: [id number] NEUROLOGIC: Cranial nerves 2-12 are grossly intact with no focal neuro deficits, 5/5 strength in the bilateral upper and lower extremities. SKIN: Warm and dry. No rashes or lesions noted. ASSESSMENT: 1. Status post coronary artery bypass graft. 2. Multiple medical comorbidities including recent bradycardia, vagal mediated syncopal episode, hypertension, hyperlipidemia, metabolic syndrome and hypothyroid. 3. Alterations in activities of daily living from previous level of function. PLAN: 1. PT, OT, speech, language, HIMS and case management to make evaluations and recommendations: 2. Labs on day after admission. 3. Plan of care is pending. 4. We will team her weekly and make changes to plan of care as needed. <ELECTRONICALLY SIGNED> By: Lenore Damian DO 05/25/17 1442 1831 1853Kshivani Damian DO /nt
--- NOTE | 2017-05-25 14:42 | PLAN ---
[facility] [address] [place] [address] REHAB UNIT PLAN OF CARE Name: SAM GONZÁLES Room: [address] IN [facility].#: [id number] Admission: 04/23/17 Attend Phys: Lenore Damian DO Discharge: 05/05/17 Date of : 45 Report #: [id number] THIS REPORT FOR: //name// CC: Lenore Tariq This is a 71-year-old female admitted to inpatient rehabilitation to facilitate safe discharge home, status post syncopal episode, initially at [facility] and then taken for a multiple vessel coronary artery bypass graft. She also has an upper respiratory infection. She did well in the postoperative period, but did require oxygen. She has significant debility with ongoing needs in physical and occupational therapy and mild issues in memory and cognition. MEDICAL PROGNOSIS: Good. REHABILITATION PROGNOSIS: Good. Estimated length of stay is 12-14 days with discharge disposition to the home setting with supportive family where she has 3 steps to enter the house and lives there with her who can provide assistance. She does have ongoing sternal precautions and oxygen needs. ESTIMATED LENGTH OF STAY: 12-14 days. Previous level of function was independent with activities of daily living. Current level of function is minimum to moderate assistance of 1-2 depending on therapy, activity and time of day. Physical therapy will see the patient 60-90 minutes per day, 5 days per week, working on upper and lower body strength, balance, coordination, navigation. Occupational therapy will work with the patient 60-90 minutes per day, 5 days per week, working on upper and lower body strength, balance, coordination, navigation, bathing, dressing, and toileting. Speech language pathology will work with the patient 30-90 minutes per day, 5 days per week, working on cognition, memory, and expression. All of the above disciplines will maintain her sternal precaution. This is an overall plan of care, may change from time to time, we will team weekly and make changes to the plan of care as needed. <ELECTRONICALLY SIGNED> By: Lenore Damian DO 05/25/17 1442 1303 1841Lenore Damian DO /nt
== END 2017-05-05 19:21 | disposition home health service (06) | DRG 947 ==
LOC: M.REH 17:50
PROVIDERS: Family Medicine; Internal Medicine; ADMIT Physical Medicine & Rehabilitation
DX: R53.81 Other malaise (principal); J95.821 Acute postprocedural respiratory failure; G93.40 Encephalopathy, unspecified; D62 Acute posthemorrhagic anemia; I25.10 Atherosclerotic heart disease of native coronary artery without angina pectoris; J06.9 Acute upper respiratory infection, unspecified; R00.1 Bradycardia, unspecified; I10 Essential (primary) hypertension; E03.9 Hypothyroidism, unspecified; E78.5 Hyperlipidemia, unspecified; E88.81 Metabolic syndrome and other insulin resistance; I48.0 Paroxysmal atrial fibrillation; I65.02 Occlusion and stenosis of left vertebral artery; E11.9 Type 2 diabetes mellitus without complications; K59.00 Constipation, unspecified; R41.82 Altered mental status, unspecified; R55 Syncope and collapse; Z95.1 Presence of aortocoronary bypass graft; Z90.710 Acquired absence of both cervix and uterus; Z79.82 Long term (current) use of aspirin; Z79.899 Other long term (current) drug therapy; Z82.49 Family history of ischemic heart disease and other diseases of the circulatory system